=== PATIENT | male | born 1975 | race Caucasian/White ===

== ENCOUNTER 2018-03-14 22:29 | Emergency (ER) | payer BC ==
[~2018-03-14] VITALS: Ht 180.3 cm; Wt 83.9 kg
--- NOTE | ~2018-03-14 | EKG ---
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 : 1975 Requested By: Antonio Fitzpatrick Order Number: [id number] MD: Robi Hernandez Measurements Intervals [place] Rate: 84 P: 34 MN: 101 QRS: -46 QRSD: 139 T: 119 QT: 378 QTc: 447 Interpretive Statements Sinus rhythm Vent pre-excitat'n(WPW) Baseline wander in lead(s) V6 No previous ECG available for comparison Electronically Signed On 03-15-2018 7:59:41 BACK HAND by Robi Hernandez [email or web address] <ELECTRONICALLY SIGNED> By: Robi Hernandez MD, [facility] 03/15/18 [id number] Robi Hernandez MD, FACC /EPI
[2018-03-14 22:59] LABS: ABSOLUTE NEUTROPHILS 3.1 thou/uL (1.4-8.2); BASOPHILS 0.9 % (0.0-2.0); EOSINOPHILS 2.4 % (0.0-3.0); HEMATOCRIT 44.6 % (42.0-52.0); HEMOGLOBIN 15.7 gm/dL (14.0-18.0); LYMPHOCYTES 38.5 % (24.0-44.0); MCH 31.5 pg (26.0-34.0); MCHC 35.2 g/dL (28.0-37.0); MCV 89.6 fL (80.0-100.0); MONOCYTES 10.2 % (1.0-8.0); PLATELET COUNT 199 thou/uL (150-400); RBC 4.98 mil/uL (4.50-6.00); RDW 13.6 % (10.5-14.5); WBC 6.4 thou/uL (4.0-11.0)
[2018-03-14 23:03] LABS: CALCIUM 8.9 mg/dL (8.5-10.1); CREATININE 1.1 mg/dL (0.7-1.3); POTASSIUM 4.2 mmol/L (3.5-5.1)
[2018-03-14 23:17] LABS: ALBUMIN 3.8 g/dL (3.4-5.0); TOTAL BILIRUBIN 1.1 mg/dL (<0.1-1.0); TOTAL PROTEIN 7.6 g/dL (6.4-8.2)
[2018-03-14] MEDS ORDERED: ATIVAN0.5 MG PO (23:39)
[2018-03-14 23:57] VITALS: BP 116/77
== END 2018-03-14 23:57 | disposition home or self-care (01) ==
LOC: ER 22:29
PROVIDERS: Emergency Medicine
DX: I45.6 Pre-excitation syndrome (principal); F14.10 Cocaine abuse, uncomplicated

== ENCOUNTER 2018-03-17 16:18 | Emergency (ER) | payer BC ==
[~2018-03-17] VITALS: Ht 180.3 cm; Wt 83.9 kg
--- NOTE | ~2018-03-17 | EKG ---
[address] [address] [facility] [place] [address] ELECTROCARDIOGRAM REPORT Name: JUANJO PHIPPS [facility] [id number] Admission: 03/17/18 Attend Phys: Discharge: Date of : 75 Report #: [id number] THIS REPORT FOR: //name// 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
[~2018-03-17 16:18] MED LIST: ATIVAN0.5 MG PO
[2018-03-17 17:22] LABS: ABSOLUTE NEUTROPHILS 5.9 thou/uL (1.4-8.2); BASOPHILS 0.5 % (0.0-2.0); EOSINOPHILS 0.4 % (0.0-3.0); HEMATOCRIT 41.9 % (42.0-52.0); HEMOGLOBIN 14.5 gm/dL (14.0-18.0); LYMPHOCYTES 17.2 % (24.0-44.0); MCH 31.1 pg (26.0-34.0); MCHC 34.7 g/dL (28.0-37.0); MCV 89.5 fL (80.0-100.0); MONOCYTES 8.4 % (1.0-8.0); PLATELET COUNT 176 thou/uL (150-400); POLYS 73.5 % (36.0-66.0); RBC 4.68 mil/uL (4.50-6.00); RDW 13.2 % (10.5-14.5)
[2018-03-17 17:28] LABS: ANION GAP 10 mmol/L (7-16); BUN 11 mg/dL (7-18); CALCIUM 9.8 mg/dL (8.5-10.1); CHLORIDE 99 mmol/L (98-107); CO2 25 mmol/L (21-32); CREATININE 1.2 mg/dL (0.7-1.3); GLUCOSE 106 mg/dL (74-106); POTASSIUM 3.4 mmol/L (3.5-5.1); SODIUM 134 mmol/L (136-145)
[2018-03-17 17:31] LABS: TROPONIN-I <0.06 ng/mL (<0.06)
[2018-03-17 17:41] LABS: URINE BILIRUBIN NEGATIVE (Negative); URINE BLOOD NEGATIVE (Negative); URINE CLARITY CLEAR; URINE COLOR YELLOW; URINE GLUCOSE-RANDOM* NEGATIVE (Negative); URINE KETONES NEGATIVE (Negative); URINE LEUKOCYTES-REFLEX NEGATIVE (Negative); URINE NITRITE-REFLEX NEGATIVE (Negative); URINE PROTEIN (DIPSTICK) NEGATIVE (Negative); URINE UROBILINOGEN 0.2 E.U./dl (0.2-1.0)
[2018-03-17 18:25] VITALS: BP 152/97
== END 2018-03-17 18:27 | disposition home or self-care (01) ==
LOC: ER 16:18
PROVIDERS: Emergency Medicine
DX: R00.2 Palpitations (principal); R33.9 Retention of urine, unspecified; F19.10 Other psychoactive substance abuse, uncomplicated; F17.210 Nicotine dependence, cigarettes, uncomplicated; F41.9 Anxiety disorder, unspecified

== ENCOUNTER 2018-03-17 18:58 | Emergency (ER) | payer BC ==
[~2018-03-17] VITALS: Ht 180.3 cm; Wt 83.9 kg
[2018-03-17 20:34] VITALS: BP 148/95
== END 2018-03-17 20:35 | disposition home or self-care (01) ==
LOC: ER 18:58
DX: T83.098A Other mechanical complication of other urinary catheter, initial encounter (principal); R33.9 Retention of urine, unspecified; F17.210 Nicotine dependence, cigarettes, uncomplicated; F41.9 Anxiety disorder, unspecified

== ENCOUNTER 2018-03-18 20:49 | Emergency (ER) | payer BC ==
[~2018-03-18] VITALS: Ht 177.8 cm; Wt 79.4 kg
[2018-03-18 23:15] VITALS: BP 109/60
== END 2018-03-18 23:16 | disposition home or self-care (01) ==
LOC: ER 20:49
DX: T83.098A Other mechanical complication of other urinary catheter, initial encounter (principal); R33.9 Retention of urine, unspecified; F41.9 Anxiety disorder, unspecified; F17.210 Nicotine dependence, cigarettes, uncomplicated; Y84.8 Other medical procedures as the cause of abnormal reaction of the patient, or of later complication, without mention of misadventure at the time of the procedure; Y92.89 Other specified places as the place of occurrence of the external cause